=== PATIENT | male | born 1950 | race Caucasian/White ===

== ENCOUNTER 2017-01-12 10:49 | Outpatient (CLI) | payer MEDICAID | END 2017-01-12 10:50 | disposition critical access hospital (66) | LOC: EMS 10:49 | PROVIDERS: ATTEND Surgery | DX: R55 Syncope and collapse (principal) | CPT/HCPCS: A0425; A0427 ==

== ENCOUNTER 2017-01-12 11:16 | Observation (INO) | payer MEDICAID, OTHER ==
[2017-01-12 12:44] LABS: BASOPHILS # (AUTO) 0.1 10^3/uL (0.0-0.1); BASOPHILS % (AUTO) 0.9 %; EOSINOPHILS # (AUTO) 0.1 10^3/uL (0.0-0.7); EOSINOPHILS % (AUTO) 0.9 %; HCT - HEMATOCRIT 45.9 % (42.0-52.0); LYMPHOCYTES # (AUTO) 1.7 10^3/uL (1.5-3.5); LYMPHOCYTES % (AUTO) 14.4 %; MEAN CORPUSCULAR HEMOGLOBIN 29.4 pg (27.0-31.0); MEAN CORPUSCULAR HGB CONC 34.7 g/dL (32.0-36.0); MEAN CORPUSCULAR VOLUME 84.5 fL (80.0-94.0); MEAN PLATELET VOLUME 8.3 fL (7.4-11.4); MONOCYTES # (AUTO) 0.8 10^3/uL (0.0-1.0); MONOCYTES % (AUTO) 6.9 %; NEUTROPHILS % (AUTO) 76.9 %; RED BLOOD COUNT 5.44 10^6/uL (4.70-6.10); RED CELL DISTRIBUTION WIDTH 14.1 % (12.0-15.0); UNCORRECTED WHITE BLOOD COUNT 11.6 x10^3/uL; WHITE BLOOD COUNT 11.6 x10^3/uL (4.8-10.8)
[2017-01-12 12:45] LABS: ALBUMIN/GLOBULIN RATIO 1.2 (1.0-2.2); BILIRUBIN,TOTAL 0.8 mg/dL (0.2-1.0); CREATININE 1.4 mg/dL (0.6-1.2); POTASSIUM 2.8 mmol/L (3.5-5.0); TOTAL PROTEIN 7.3 g/dL (6.7-8.2)
--- NOTE | 2017-01-12 12:50 | ED Physician Documentation ---
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 denies: Abdominal Pain, Nausea Neurologic: reports: Syncope. denies: Generalized weakness, Focal weakness, Numbness, Difficulty speaking, Headache, Head injury Endocrine: denies: Easy bruising / bleeding PD PAST MEDICAL HISTORY - Past Medical History Cardiovascular: Hypertension Respiratory: None Endocrine/Autoimmune: None - Past Surgical History Past Surgical History: No - Present Medications Home Medications: Ambulatory Orders Medication Instructions Recorded Confirmed Donepezil [Aricept] 10 mg PO DAILY 01/12/17 01/12/17 amLODIPine [Norvasc] 5 mg PO DAILY 01/12/17 01/12/17 diltiaZEM CD [Cardizem Cd] 240 mg PO DAILY 01/12/17 01/12/17 hydroCHLOROthiazide 25 mg PO DAILY 01/12/17 01/12/17 [Hydrochlorothiazide] - Allergies Allergies/Adverse Reactions: Allergies Allergy/AdvReac Type Severity Reaction Status Date / Time No Known Drug Allergies Allergy Verified 01/12/17 11:26 - Social History Does the pt smoke?: Yes Smoking Status: Current every day smoker Does the pt drink ETOH?: No Does the pt have substance abuse?: No - Immunizations Immunizations are current?: No Immunizations: No immun - POLST Patient has POLST: No PD ED PE NORMAL - Vitals Vital signs reviewed: Yes - General General: Alert and oriented X 3 - HEENT HEENT: Atraumatic - Neck Neck: No bony TTP - Cardiac Cardiac: No: RRR (rapid and irreg) - Respiratory Respiratory: No respiratory distress, Clear bilaterally - Abdomen Abdomen: Soft, Non tender - Neuro Neuro: Alert and oriented X 3 Eye Opening: Spontaneous Motor: Obeys Commands Verbal: Oriented GCS Score: 15 Results - Vitals Vitals: Vital Signs - 24 hr 01/12/17 01/12/17 01/12/17 11:22 12:28 14:08 Temperature 36.9 C Heart Rate 121 H 105 H 93 Respiratory 20 18 18 Rate Blood Pressure 115/77 115/92 H 131/85 H O2 Saturation 95 95 98 Oxygen O2 Source Room air - EKG (time done) 1222 Rate: Rate (enter#) (118) Rhythm: Atrial fibrillation [place]: Normal Intervals: Normal DE Ischemia: Q waves (inferior) - Labs Labs: Laboratory Tests 01/12/17 01/12/17 01/12/17 12:23 12:23 12:23 WBC 11.6 H RBC 5.44 Hgb 16.0 Hct 45.9 MCV 84.5 MCH 29.4 MCHC 34.7 RDW 14.1 Plt Count 206 MPV 8.3 Neut # 9.0 H Lymph # 1.7 [place] # 0.8 Eos # 0.1 Baso # 0.1 Absolute Nucleated RBC 0.00 Nucleated RBC % 0.0 Sodium 136 Potassium 2.8 L Chloride 99 L Carbon Dioxide 25 Anion Gap 12.0 BUN 25 H Creatinine 1.4 H Estimated GFR (MDRD) 51 L Glucose 106 H Calcium 9.0 Total Bilirubin 0.8 AST 26 ALT 26 Alkaline Phosphatase 75 Troponin I < 0.04 Total Protein 7.3 Albumin 4.0 Globulin 3.3 Albumin/Globulin Ratio 1.2 Lipase 40 PD MEDICAL DECISION MAKING - ED course ED course: a fib not new, rate sloweed s intervention except IVF, will obs for tele and echo Departure - Departure Disposition: ED Place in Observation Clinical Impression: Hypokalemia Syncope Qualifiers: Syncope type: unspecified Qualified Code(s): R55 - Syncope and collapse Condition: Good
[2017-01-12] MEDS ORDERED: POTASSIUM CHLORIDE 20 MEQ TABLET PO STA (12:52)
[2017-01-12] MEDS ORDERED: POTASSIUM CHLOR 10 MEQ/100 ML 10 MEQ/100 ML BAG IV ONE ×2 (12:52→13:00)
[2017-01-12] MEDS ORDERED: POTASSIUM CHLORIDE 20 MEQ TABLET PO ONE (13:00)
--- NOTE | 2017-01-12 13:32 | XRAY Preliminary Report ---
Exam: XR CHEST 1 VIEW IMPRESSION: No acute disease. [facility] SITE ID: [id number]
--- NOTE | 2017-01-12 13:34 | XRAY Report ---
EXAM: CHEST RADIOGRAPHY EXAM DATE: 01/12/2017 01:07 PM. CLINICAL HISTORY: Chest pain. COMPARISON: 10 January 2015. TECHNIQUE: 1 view. FINDINGS: Lungs/Pleura: Mildly hyperexpanded, but clear. No effusion or pneumothorax. Mediastinum: Within exam limitations, the cardiomediastinal contour is normal. Upper lobe vessels not distended. Other: Postoperative changes of left shoulder. IMPRESSION: No acute disease. [facility] Referring Provider Line: [phone] SITE ID: [id number]
[2017-01-12] MEDS ORDERED: ONDANSETRON 4 MG/2 ML VIAL IVP PRN (14:11)
[2017-01-12] MEDS ORDERED: HYDROcod/ACETAM 10 MG/325 MG TABLET PO PRN (14:11)
[2017-01-12] MEDS ORDERED: SODIUM CHLORIDE FLUSH 0.9% 10 ML SYRINGE IVP PRN (14:11)
[2017-01-12] MEDS ORDERED: PROCHLORPERAZINE 10 MG/2 ML VIAL IVP PRN (14:11)
[2017-01-12] MEDS ORDERED: ZOLPIDEM 5 MG TABLET PO PRN (14:11)
[2017-01-12] MEDS ORDERED: HYDROcod/ACETAM 5/325 MG TABLET PO PRN (14:11)
[2017-01-12] MEDS ORDERED: diltiaZEM 30 MG TABLET PO SCH (15:00)
[2017-01-12] MEDS: NS W/20 MEQ KCL 1,000 ML IV SCH ×2 (16:01→23:46)
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
[2017-01-12] MEDS: ACETAMINOPHEN 325 MG TABLET PO PRN ×2 (17:01→21:19)
[2017-01-12] MEDS: SODIUM CHLORIDE FLUSH 0.9% 10 ML SYRINGE IVP SCH (22:32)
--- NOTE | 2017-01-12 23:16 | Ultrasound Preliminary Report ---
Exam: US CAROTID DOPPLER COMPLETE IMPRESSION: 1. Bilateral carotid plaquing with no significant stenosis. 2. Antegrade flow in both vertebral arteries. Validated velocity measurements with angiographic measurements and velocity criteria are extrapolated from diameter data as defined by the Society of Radiologists in Ultrasound Consensus Conference Radi ology 2003; 229;340-346. [facility] SITE ID: [id number]
--- NOTE | 2017-01-12 23:31 | Ultrasound Report ---
EXAM: CAROTID DOPPLER ULTRASOUND EXAM DATE: 01/12/2017 10:28 PM. CLINICAL HISTORY: Syncope. COMPARISON: None. TECHNIQUE: Real-time sonographic vascular imaging was performed by the fitting room attendant through the [employer] d arterial system with a linear transducer utilizing color-flow, Doppler flow and spectral analysis. Multiple manufacturers service representative static images were saved for review. FINDINGS: There is plaquing at the carotid bifurcation and proximal internal carotid artery bilaterally. No sig nificant stenosis is seen. Antegrade flow is seen in both vertebral arteries. Right: RCCA Prox: PSV 101.7 cm/sec. RCCA Dist: PSV 58.6 cm/sec, EDV 19.1 cm/sec. RECA: PSV 57.2 cm/sec. R Bulb: PSV 40.0 cm/sec, EDV 14.9 cm/sec, ICA/CCA ratio 0.7. BRENDA Prox: PSV 35.5 cm/sec, EDV 15.3 cm/sec, ICA/CCA ratio 0.6. BRENDA Mid: PSV 51.0 cm/sec, EDV 22.8 cm/sec, ICA/CCA ratio 0.9. BRENDA Dist: PSV 55.6 cm/sec, EDV 21.6 cm/sec, ICA/CCA ratio 0.9. RVA: PSV 39.9 cm/sec. RVA flow direction: Antegrade. Left: LCCA Prox: PSV 110.9 cm/sec. LCCA Dist: PSV 57.0 cm/sec, EDV 16.2 cm/sec. LECA: PSV 43.6 cm/sec. L Bulb: PSV 42.2 cm/sec, EDV 12.5 cm/sec, ICA/CCA ratio 0.7. LICA Prox: PSV 31.2 cm/sec, EDV 11.7 cm/sec, ICA/CCA ratio 0.5. LICA Mid: PSV 44.2 cm/sec, EDV 19.2 cm/sec, ICA/CCA ratio 0.8. LICA Dist: PSV 55.2 cm/sec, EDV 19.8 cm/sec, ICA/CCA ratio 0.9. LVA: PSV 18.8 cm/sec. LVA flow direction: Antegrade. Other: None. IMPRESSION: 1. Bilateral carotid plaquing with no significant stenosis. 2. Antegrade flow in both vertebral arteries. Validated velocity measurements with angiographic measurements and velocity criteria are extrapolated from diameter data as defined by the Society of Radiologists in Ultrasound Consensus Conference Radi ology 2003; 229;340-346. [facility] Referring Provider Line: [phone] SITE ID: [id number]
[2017-01-13 01:39] LABS: ALBUMIN/GLOBULIN RATIO 1.2 (1.0-2.2); BILIRUBIN,TOTAL 0.7 mg/dL (0.2-1.0); BUN - BLOOD UREA NITROGEN 22 mg/dL (6-20); CALCIUM 8.1 mg/dL (8.5-10.3); CARBON DIOXIDE - CO2 26 mmol/L (21-32); CHLORIDE 103 mmol/L (101-111); CHOL/HDL RATIO 4.5 (<5.0); CHOLESTEROL 162 mg/dL; CREATININE 1.2 mg/dL (0.6-1.2); GFR - MDRD 61 (>89); GLUCOSE 120 mg/dL (70-100); HDL CHOLESTEROL 36 mg/dL; LDL/HDL RATIO 3.1 (<3.6); POTASSIUM 3.1 mmol/L (3.5-5.0); SODIUM 137 mmol/L (135-145); TOTAL PROTEIN 6.2 g/dL (6.7-8.2); TRIGLYCERIDES 64 mg/dL; VLDL CHOLESTEROL 13 mg/dL
[2017-01-13] MEDS: SODIUM CHLORIDE FLUSH 0.9% 10 ML SYRINGE IVP SCH (05:48)
[2017-01-13] MEDS: NS W/20 MEQ KCL 1,000 ML IV SCH (07:59)
[2017-01-13] MEDS ORDERED: ENOXAPARIN 40 MG/0.4 ML SYRINGE SUBQ SCH (09:00)
[2017-01-13] MEDS ORDERED: NON FORMULARY MED (Lisinopril [Lisinopril] 10 MG) PO SCH (09:00)
[2017-01-13] MEDS ORDERED: FAMOTIDINE 20 MG TABLET PO SCH (09:00)
[2017-01-13] MEDS ORDERED: POLYETHYLENE GLYCOL 3350 17 GM PACKET PO SCH (09:00)
[2017-01-13] MEDS ORDERED: ASPIRIN EC 81 MG TABLET PO SCH (09:00)
[2017-01-13] MEDS ORDERED: diltiaZEM INJ 5 MG/ML VIAL IVP SCH (09:24)
[2017-01-13 11:41] VITALS: BP 146/108
[2017-01-13] MEDS ORDERED: POTASSIUM CHLORIDE 20 MEQ TABLET PO ONE ×2 (11:56→12:00)
--- NOTE | 2017-01-13 12:03 | Discharge Plan ---
Discharge Plan Disposition: 01 Home, Self Care Condition: Fair Diet: Low Sodium Activity Restrictions: No Restrictions Shower Restrictions: No Driving Restrictions: No No Smoking: If you smoke, Please STOP! Call for help. Follow-up with: Melissa Valenzuela ARNP [Primary Care Provider] -
[2017-01-13] MEDS ORDERED: POTASSIUM CHLORIDE 20 MEQ TABLET PO SCH (12:11)
[2017-01-13] MEDS ORDERED: diltiaZEM CD 240 MG CAPSULE PO SCH (15:00)
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
== END 2017-01-13 12:25 | disposition home or self-care (01) ==
LOC: ED 11:16 → OBS 14:12
PROVIDERS: ADMIT Internal Medicine; ATTEND Internal Medicine
DX: R55 Syncope and collapse (principal); I48.91 Unspecified atrial fibrillation; E87.6 Hypokalemia; I10 Essential (primary) hypertension; R41.3 Other amnesia; M19.90 Unspecified osteoarthritis, unspecified site; Z79.899 Other long term (current) drug therapy; Z72.89 Other problems related to lifestyle; Z86.718 Personal history of other venous thrombosis and embolism; Z86.69 Personal history of other diseases of the nervous system and sense organs; Z87.828 Personal history of other (healed) physical injury and trauma
CPT/HCPCS: 36415; 71010; 80053; 80061; 83690; 83880; 84443; 84484; 85025; 93005; 93306; 93880; 96361; 96365; 96366; 96375; 99284; A9270; G0378

== ENCOUNTER 2017-01-27 10:00 | Outpatient (CLI) | payer MEDICAID ==
[2017-01-27 10:25] LABS: CALCIUM 8.8 mg/dL (8.5-10.3); CREATININE 1.3 mg/dL (0.6-1.2); POTASSIUM 3.7 mmol/L (3.5-5.0)
== END 2017-01-27 10:01 | disposition home or self-care (01) ==
LOC: LAB 10:00
DX: I74.2 Embolism and thrombosis of arteries of the upper extremities (principal); I48.2 Chronic atrial fibrillation; Z85.828 Personal history of other malignant neoplasm of skin; R03.0 Elevated blood-pressure reading, without diagnosis of hypertension; F48.9 Nonpsychotic mental disorder, unspecified; Z12.11 Encounter for screening for malignant neoplasm of colon; N40.0 Benign prostatic hyperplasia without lower urinary tract symptoms; Z71.9 Counseling, unspecified; E87.6 Hypokalemia
CPT/HCPCS: 36415; 80048; 84153

== ENCOUNTER 2018-11-17 13:01 | Outpatient (CLI) | payer MEDICARE ==
--- NOTE | 2018-11-18 10:29 | XRAY Report ---
Reason: PAIN IN RIGHT KNEE, PAIN IN RIGHT ANKLE JOINT Procedure Date: 11/17/2018 Accession Number: [id number] / [id number] Procedure: XR - Ankle 3 View RT CPT Code: FULL RESULT: EXAM: RIGHT ANKLE RADIOGRAPHY EXAM DATE: 11/17/2018 01:26 PM. CLINICAL HISTORY: PAIN IN RIGHT KNEE, PAIN IN RIGHT ANKLE JOINT. COMPARISON: None. TECHNIQUE: 3 views. FINDINGS: Bones: Normal. No fractures or bone lesions. Joints: Normal. No effusion. No subluxations. The ankle mortise is normally aligned. Soft Tissues: Normal. No soft tissue swelling. IMPRESSION: Normal ankle radiography. [facility]
--- NOTE | 2018-11-18 10:41 | XRAY Report ---
Reason: PAIN IN RIGHT KNEE, PAIN IN RIGHT ANKLE JOINT Procedure Date: 11/17/2018 Accession Number: [id number] / [id number] Procedure: XR - Knee 3 View RT CPT Code: FULL RESULT: EXAM: RIGHT KNEE RADIOGRAPHY EXAM DATE: 11/17/2018 01:26 PM. CLINICAL HISTORY: Pain in right knee, pain in right ankle joint. COMPARISON: None. TECHNIQUE: 3 views. FINDINGS: Bones: Normal. No fractures or bone lesions. Joints: Minimal medial compartment degenerative changes with osteophytic spurring. No other significant degenerative changes seen. No effusion. No subluxations. Soft Tissues: Normal. No soft tissue swelling. IMPRESSION: Minimal medial compartment femorotibial degenerative changes. [facility]
== END 2018-11-17 13:02 | disposition home or self-care (01) ==
LOC: DI 13:01
PROVIDERS: ATTEND Family Medicine
DX: M25.571 Pain in right ankle and joints of right foot (principal); M17.11 Unilateral primary osteoarthritis, right knee

== ENCOUNTER 2023-10-13 10:57 | Outpatient (CLI) | payer MEDICARE ==
--- NOTE | 2023-10-13 11:36 | Sleep Patient Instructions ---
Sleep Center Visit Summary - Patient Visit Information Reason for Visit: Initial consult for evaluation of sleep disordered breathing and other sleep issues. - Patient Instructions Instructions Attached: Sleep Study Home Monitor Additional Instructions: You will be completing a sleep study, either an in-lab polysomnography (PSG) or home sleep study (HST). You will follow-up in the sleep care office after the sleep study is completed to hear the results and talk about therapy, if needed. You will be called by our office staff to schedule this appointment, but you may contact us with any questions. - Clinic Information Contact: [facility] [address] [place] [address] [email or web address] T: [phone]
[2023-10-13 11:40] VITALS: BP 136/98; O2SAT 95
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
== END 2023-10-13 10:58 | disposition home or self-care (01) ==
LOC: SC 10:57
PROVIDERS: ATTEND Nurse Practitioner Family
DX: G47.10 Hypersomnia, unspecified (principal); R53.83 Other fatigue; R06.83 Snoring; E66.9 Obesity, unspecified; Z68.32 Body mass index [BMI] 32.0-32.9, adult; R41.89 Other symptoms and signs involving cognitive functions and awareness; G47.8 Other sleep disorders; I10 Essential (primary) hypertension; I49.9 Cardiac arrhythmia, unspecified; Z79.01 Long term (current) use of anticoagulants
CPT/HCPCS: 99203; G0463; 99212

== ENCOUNTER 2023-10-27 12:25 | Outpatient (CLI) | payer MEDICARE | END 2023-10-27 12:26 | disposition home or self-care (01) | LOC: SC 12:25 | PROVIDERS: ATTEND Nurse Practitioner Family | DX: G47.33 Obstructive sleep apnea (adult) (pediatric) (principal); R09.02 Hypoxemia; Z68.32 Body mass index [BMI] 32.0-32.9, adult; E66.9 Obesity, unspecified | CPT/HCPCS: 95806; G0399 ==

== ENCOUNTER 2023-11-17 09:48 | Outpatient (CLI) | payer MEDICARE ==
--- NOTE | 2023-11-17 10:23 | Sleep Patient Instructions ---
Sleep Center Visit Summary - Patient Visit Information Reason for Visit: Sleep study follow-up - Patient Instructions Instructions Attached: Apnea Sleep Mouthpieces, CPAP Additional Instructions: You have severe obstructive sleep apnea and we have reviewed your choices of therapy. Please let me know what you decide to do. Please call office to schedule a follow up appointment in the sleep care office. - Clinic Information Contact: [facility] [address] [place] [address] [email or web address] T: [phone]
--- NOTE | 2023-11-17 10:35 | SLEEP CARE CONSULTATION ---
Information from patient questionnaire entered by Sheila Rivera. I have reviewed and concur with the information entered by Sheila Rivera. This document represents the service I personally performed and the decisions made by me, Vane Moreno ARNP. History of Present Illness Service Date and Time: 11/17/202348 Initial [place] Sleepiness Scale score: 14 (10/13/23) Current [place] Sleepiness Scale score: 13 (11/17/23) Additional HPI information: ALEX RESTREPO returns for follow up and results of the recently performed home sleep study. The sleep study done on 10/27/23 showed severe obstructive sleep apnea with an average AHI of 37.5 and oc oxygen saturation of 81%. I explained the pathophysiology behind obstructive sleep apnea. We then spent quite a bit of time discussing different treatment options. For mild obstructiv e sleep apnea, surgery and oral appliance are alternatives to nasal CPAP therapy but in moderate or severe cases, nasal CPAP is the most effective and reliable treatment. I reviewed the impact of weight changes on sleep apnea and strongly recommended losing weight. After some discussion, the patient would like to think about his options and will let me know what he decides. He does not feel he can tolerate even trying the CPAP. He just says he knows himself and he would never use it. He may decide to try the Inspire implant or even the oral appliance as a rescue remedy to try to reduce what apneas he does experience. Sleep Study - Results Type of Sleep Study: Home sleep study (COMPLETED 10/27/23) Prior sleep studies: No Polysomnography/Home Sleep Study results: Physician Impression: The quality of the study is good. The length of the study is adequate (> 240 min utes). Please also see the tabulated and graphic data. 1. Obstructive Sleep Apnea-Hypopnea (ICD-10 G47.33), severe, with an AHI of 37.5/hr and oc SaO2 of 81%. During the study, the patient had 98 apneas (98 obstructive, 0 central, 0 mixed) and 112 hypopneas. The longest episode lasted 120.0 seconds. The respiratory events occurred more frequently during supine sleep (supine AHI was 68.1 and non-supine, 35.89). 2. Hypoxemia (ICD-10 R09.02), mild, with the lowest oxygen saturation of 81 % and 69.2 minutes with SaO2 under 90%. Baseline oxygen saturation was normal (Average oxygen saturation was 91%). Allergies and Home Medications Known drug allergies: No Drug allergies reviewed: Yes Home medication list reviewed: Yes (no changes) Allergy and home medication list: Allergies No Known Drug Allergies Allergy (Verified 11/17/23 09:54) Review of Systems Review of systems same as previous: Yes (NO CHANGE) Physical Exam Vital signs obtained and entered by: SHEILA Rolon MA Blood Pressure: 138/86 (RIGHT ARM) Cuff size: regular Heart Rate: 84 O2 Saturation: 98 Height: 6 ft 1 in Weight: 246 lb 6.4 oz Body Mass Index: 32.5 BMI Classification: Obese Impression and Plan 1. Obstructive Sleep Apnea-Hypopnea Syndrome, severe, with lowest oxygen saturation of 81%. Obviously this is the cause of the patients symptoms of unrefreshed sleep, and excessive daytime sleepiness. Positive pressure therapy could benefit hypertension and atrial fibrillation. After some discussion and outlining his options for treatment, he would like to think about it and will call me if he decides to pursue treatment. I advised him to sleep with head elevated to reduce apneas and avoid supine sleep. He voiced understanding. 2. Hypoxemia, mild, with a oc oxygen saturation of 81% and 69.2 minutes spent under 90%. The baseline oxygen saturation was normal with an average oxygen saturation of 91%. 3. Obesity, unspecified. Currently patients BMI is 37.5. Obesity increases the risk of apnea, CPAP pressure requirements and overall health risks especially cardiovascular and diabetes. Thus patient is advised to lose weight. * Patient to call with choice of therapy * Attempt to lose weight. * Avoid alcohol consumption near bedtime. * Avoid supine sleep * The patient is again cautioned about driving until sleepiness completely resolves. * Return determined by patient's choice of therapy. Counseling Topics: Sleeping position (elevate head), Weight loss health impact Follow up with Sleep Care in: other (determined by therapy choice) Visit Type: In Office Time Spent with Patient (minutes): 24 Provider Statement: I spent 100% of the Face to Face Visit with the patient with greater than 50% spent counseling the patient and coordination of care.
[2023-11-17 10:48] VITALS: BP 138/86; O2SAT 98
== END 2023-11-17 09:49 | disposition home or self-care (01) ==
LOC: SC 09:48
PROVIDERS: ATTEND Nurse Practitioner Family
DX: G47.33 Obstructive sleep apnea (adult) (pediatric) (principal); R09.02 Hypoxemia; E66.9 Obesity, unspecified; Z68.32 Body mass index [BMI] 32.0-32.9, adult
CPT/HCPCS: 99213; G0463; 99212